=== PATIENT | male | born 1975 | race Caucasian/White ===

== ENCOUNTER → 2018-07-25 | Outpatient (CLI) | payer OTHER | END | disposition home or self-care (01) | LOC: CFH 08:51 | PROVIDERS: ATTEND Internal Medicine Cardiovascular Disease | DX: I51.7 Cardiomegaly (principal); E78.5 Hyperlipidemia, unspecified; Z82.49 Family history of ischemic heart disease and other diseases of the circulatory system | CPT/HCPCS: 93306 ==

== ENCOUNTER 2018-08-31 17:40 | Inpatient (IN) | payer OTHER ==
[~2018-08-31] VITALS: Ht 177.8 cm; Wt 100.0 kg
[2018-08-31] MEDS ORDERED: ASPIRIN 81 MG TABLET CHEW PO ONE (18:30)
[2018-08-31 18:35] LABS: BASOPHILS # (AUTO) 0.01 x10^3/uL (0-0.1); BASOPHILS % (AUTO) 0 % (0-1); EOSINOPHILS # (AUTO) 0.12 x10^3/uL (0-0.4); EOSINOPHILS % (AUTO) 1 % (1-7); LYMPHOCYTES # (AUTO) 1.95 x10^3/uL (1-3.4); LYMPHOCYTES % (AUTO) 24 % (22-44); MD NO; MEAN CORPUSCULAR HEMOGLOBIN 31.2 pg (27.5-34.5); MEAN CORPUSCULAR HGB CONC 34.5 g/dL (33.2-36.2); MEAN CORPUSCULAR VOLUME 90.3 fL (81-97); MEAN PLATELET VOLUME 7.8 fL (7.4-10.4); MONOCYTES # (AUTO) 0.79 x10^3/uL (0.2-0.8); MONOCYTES % (AUTO) 10 % (2-9); NEUTROPHILS # (AUTO) 5.38 x10^3/uL (1.8-6.8); NEUTROPHILS % (AUTO) 65 % (42-75); PLATELET COUNT 258 x10^3/uL (130-400); RED BLOOD COUNT 5.07 x10^6/uL (4.38-5.82); RED CELL DISTRIBUTION WIDTH 12.5 % (9.4-14.8)
[2018-08-31 18:41] LABS: ALANINE AMINOTRANSFERASE 65 U/L (12-78); ALBUMIN 4.1 g/dL (3.4-5.0); ANION GAP 10 mmol/L (5-15); CALCIUM 8.5 mg/dL (8.5-10.1); CHLORIDE 106 mmol/L (98-107); CREATININE 1.04 mg/dL (0.7-1.3)
[2018-08-31 18:45] LABS: ALKALINE PHOSPHATASE 74 U/L (45-117); BILIRUBIN,TOTAL 1.3 mg/dL (0.2-1.0); TOTAL PROTEIN 7.6 g/dL (6.4-8.2); TROPONIN I < 0.015 ng/mL (0.000-0.045)
[2018-08-31] MEDS ORDERED: ASPIRIN 81 MG TABLET CHEW ONE (18:51)
[2018-08-31] MEDS ORDERED: ATOR20TA9 PO (19:06)
[2018-08-31] MEDS ORDERED: ALBU18HF INH (19:06)
[2018-08-31] MEDS ORDERED: FLUT1DIS3 INH (19:06)
[2018-08-31] MEDS ORDERED: NITROGLYCERIN 0.4 MG/SPRAY SL PRN ×2 (19:30→22:00)
[2018-08-31] MEDS ORDERED: BISACODYL 10 MG SUPP PR PRN (19:30)
[2018-08-31] MEDS ORDERED: NITROGLYCERIN 0.4 MG BOTTLE (25 TABS) SL PRN ×2 (19:30→22:00)
[2018-08-31] MEDS ORDERED: ONDANSETRON 2MG/ML, 2ML IVP PRN (19:30)
[2018-08-31] MEDS ORDERED: SODIUM CHLORIDE FLUSH 10ML SYR IVF PRN (19:30)
[2018-08-31] MEDS ORDERED: ZOLPIDEM 5MG TABLET PO PRN (19:30)
[2018-08-31] MEDS ORDERED: NITROGLYCERIN SINGLE TAB 0.4 MG SL PRN (19:30)
[2018-08-31] MEDS ORDERED: morphine SULFATE 10 MG/ML, 1ML IV PRN (19:30)
[2018-08-31] MEDS ORDERED: ASPIRIN 325 MG TABLET EC PO ONE (19:30)
[2018-08-31] MEDS ORDERED: ACETAMINOPHEN 650 MG/20.3 ML UDC PO PRN (19:30)
[2018-08-31] MEDS ORDERED: BISACODYL 5 MG EC TABLET PO PRN (19:30)
[2018-08-31 19:56] VITALS: BP 144/95
[2018-08-31 19:59] VITALS: BP 144/95
[2018-08-31 19:59] LABS: TROPONIN I < 0.015 ng/mL (0.000-0.045)
[2018-08-31] MEDS ORDERED: ATORVASTATIN 40 MG TABLET PO SCH (21:00)
[2018-08-31] MEDS ORDERED: DIPHENHYDRAMINE 25 MG CAPSULE PO PRN (21:00)
[2018-08-31] MEDS ORDERED: ARTIFICIAL TEARS 15 DROP/ML BOTTLE EACHEYE PRN (21:00)
[2018-08-31] MEDS ORDERED: ASPIRIN 81 MG TABLET EC PO ONE (21:00)
[2018-08-31] MEDS ORDERED: METOPROLOL TARTRATE 100 MG TABLET PO SCH (21:00)
[2018-08-31 22:00] VITALS: BP 143/86
[2018-08-31] MEDS: SODIUM CHLORIDE FLUSH 10ML SYR IVF SCH (22:40)
[2018-08-31] MEDS: METOPROLOL TARTRATE 25 MG TABLET PO SCH (22:42)
[2018-08-31 23:29] LABS: TROPONIN I < 0.015 ng/mL (0.000-0.045)
[2018-09-01 01:56] VITALS: BP 108/65
[2018-09-01 05:11] LABS: CHOL/HDL RATIO 6.2; LDL/HDL RATIO 4.3 (0.5-3.0)
[2018-09-01] MEDS ORDERED: ASPIRIN 325 MG TABLET EC PO SCH (06:00)
[2018-09-01 07:06] VITALS: BP 113/74
[2018-09-01] MEDS: METOPROLOL TARTRATE 25 MG TABLET PO SCH (09:05)
[2018-09-01] MEDS: SODIUM CHLORIDE FLUSH 10ML SYR IVF SCH (09:05)
[2018-09-01] MEDS ORDERED: MIDAZOLAM 1 MG/ML, 2ML ONE ×2 (11:53→13:08)
[2018-09-01] MEDS ORDERED: VERAPAMIL 2.5 MG/ML, 2ML ONE (11:54)
[2018-09-01] MEDS ORDERED: DIPHENHYDRAMINE 50 MG/ML, 1ML ONE (11:54)
[2018-09-01] MEDS ORDERED: HEPARIN 1,000 UNITS/ML, 10ML ONE (11:54)
[2018-09-01] MEDS ORDERED: FENTANYL PF 100 MCG/2ML ONE (11:54)
[2018-09-01] MEDS ORDERED: SODIUM CHLORIDE 0.9% 1,000 ML IV SCH (14:02)
[2018-09-01] MEDS ORDERED: ACET-76 PO (14:02)
== END 2018-09-01 18:40 | disposition home or self-care (01) | DRG 287 ==
LOC: ED 19:26 → EDIP 19:27 → 5SO 20:06
PROVIDERS: ADMIT Internal Medicine Cardiovascular Disease; ATTEND Internal Medicine Cardiovascular Disease
PROC: B2111ZZ Fluoroscopy of Multiple Coronary Arteries using Low Osmolar Contrast (ICD-10-PCS; principal; 2018-09-01)
PROC: B2151ZZ Fluoroscopy of Left Heart using Low Osmolar Contrast (ICD-10-PCS; 2018-09-01)
PROC: 4A023N7 Measurement of Cardiac Sampling and Pressure, Left Heart, Percutaneous Approach (ICD-10-PCS; 2018-09-01)
DX: I20.0 Unstable angina (principal); J45.909 Unspecified asthma, uncomplicated; I10 Essential (primary) hypertension; E78.5 Hyperlipidemia, unspecified; Z87.891 Personal history of nicotine dependence; Z82.49 Family history of ischemic heart disease and other diseases of the circulatory system; Z82.41 Family history of sudden cardiac death
CPT/HCPCS: 36415; 71046; 80053; 80061; 84484; 85025; 93005; 93458; 99156; 99157; 99285; C1760; C1769; C1894; G0378; J1644; J2250; J3010; J1200; Q9967